=== PATIENT | female | born 1975 | race Two or more races ===

== ENCOUNTER 2018-02-16 10:12 | Emergency (ER) | payer MEDICAID ==
[~2018-02-16] VITALS: Ht 154.9 cm; Wt 57.6 kg
[2018-02-16 10:26] VITALS: BP 109/61
--- NOTE | 2018-02-16 10:49 | Diagnostic Imaging Report ---
RIGHT HAND, Views INDICATION: Pain COMPARISON: None FINDINGS: 3 views of the right hand obtained. Bony structures are intact. Bone mineralization is within normal limits. Joint spaces are preserved. Soft tissues within normal limits. No radio-opaque foreign bodies seen. IMPRESSION: No acute fracture.
[2018-02-16] MEDS ORDERED: IBUPROFEN600 MG ORAL (11:10)
--- NOTE | 2018-02-16 11:18 | Emergency Room Report ---
History of Present Illness General Chief Complaint: Pain Source: Patient Present Illness HPI Patient present with complaints of right thumb pain Reports that last night she had an extension type injury And the pain has persisted points to the base of the thumb 8 out of 10 pain Denies any wrist pain denies any elbow pain denies any other trauma Denies any numbness or tingling However the pain does shoot from the base of the thumb to the mid thumb Worsened with extension or flexion of the thumb Allergies: Coded Allergies: No Known Allergies (Unverified , 02/16/18) Patient History Past Medical History: see triage record Pertinent Family History: none Last Menstrual Period: Jan 2018 Reviewed Nursing Documentation: PMH: Agreed; PSxH: Agreed Nursing Documentation-PMH Hx Asthma: Yes Review of Systems All Other Systems: negative except mentioned in HPI Physical Exam Vital Signs Date Time Temp Pulse Resp B/P (MAP) Pulse Ox O2 Delivery O2 Flow Rate FiO2 02/16/18 10:22 98.1 74 16 109/61 98 Room Air Sp02 EP Interpretation: reviewed, normal General Appearance: no apparent distress Head: normocephalic, atraumatic Eyes: bilateral eye PERRL, bilateral eye EOMI ENT: normal pharynx Neck: full range of motion, supple Respiratory: lungs clear Cardiovascular #1: regular rate, rhythm Gastrointestinal: non tender Musculoskeletal: other - Tender on palpation at the base of the thumb on the right side, no obvious swelling or ecchymosis, pain is exacerbated with any movement of the thumb Neurologic: alert, oriented x3 Skin: normal color, no rash Lymphatic: no adenopathy Procedures Splinting Splinting : Consent: Verbal Location: Right hand Pre-Made Type: velcro Splint: thumb spica Pre-Proc Neuro Vasc Exam: normal Post-Proc Neuro Vasc Exam: normal Patient Tolerated: Well Complications: None Medical Decision Making Diagnostic Impression: Primary Impression: thumb sprain ER Course Given the patient's history and presentation imaging studies were initiated No obvious acute fractures are seen Given the patient's discomfort and type of injury She was placed into a splint and will have close outpatient follow-up Other X-Ray Diagnostic Results Other X-Ray Diagnostic Results : X-Ray ordered: Right hand # of Views/Limited Vs Complete: 4 View Indication: Pain EP Interpretation: Yes Interpretation: no dislocation, no soft tissue swelling, no fractures Impression: No acute disease Electronically Signed by: Ahmet Barahona DO Last Vital Signs Date Time Temp Pulse Resp B/P (MAP) Pulse Ox O2 Delivery O2 Flow Rate FiO2 02/16/18 10:26 98.1 79 16 109/61 98 Room Air Status: improved Disposition: HOME, SELF-CARE Condition: Improved Scripts Ibuprofen* (MOTRIN*) 600 Mg Tablet 600 MG ORAL Q8H PRN for For Pain, #20 TAB 0 Refills Prov: Ahmet Barahona DO 02/16/18 [facility],REFERRING (PCP) Patient Instructions: Thumb Sprain Additional Instructions: Patient is provided with the discharge instructions notified to follow up with primary doctor in the next 2-3 days otherwise return to the er with any worsening symptoms. Please note that this report is being documented using [employer] technology. This can lead to erroneous entry secondary to incorrect interpretation by the dictating instrument. Ahmet aBrahona DO Feb 16, 2018 11:18
[2018-02-16 11:50] VITALS: BP 109/61
== END 2018-02-16 11:25 | disposition home or self-care (01) ==
LOC: EDBD 10:12 → EMR 10:41
DX: S63.601A Unspecified sprain of right thumb, initial encounter (principal); X50.9XXA Other and unspecified overexertion or strenuous movements or postures, initial encounter; Y92.89 Other specified places as the place of occurrence of the external cause
CPT/HCPCS: 29130; 99283